=== PATIENT | female | born 1960 | race Caucasian/White ===

== ENCOUNTER 2017-03-30 07:48 | Outpatient (CLI) | payer OTHER ==
[2017-03-30 08:52] LABS: HEMOGLOBIN A1C 0.54 g/dL
[2017-03-30 09:50] LABS: THYROID STIMULATING HORMONE 1.9 uIU/mL (0.34-5.60)
[2017-03-31 08:26] LABS: PROGESTERONE <0.5 ng/mL
[2017-04-01 21:21] LABS: DHEA SULFATE 78 mcg/dL (8-188)
== END 2017-03-30 07:49 | disposition home or self-care (01) ==
LOC: LAB 07:48
PROVIDERS: ATTEND Internal Medicine
DX: Z00.00 Encounter for general adult medical examination without abnormal findings (principal); Z79.899 Other long term (current) drug therapy; H52.10 Myopia, unspecified eye; M54.5 Low back pain; R85.619 Unspecified abnormal cytological findings in specimens from anus; F41.9 Anxiety disorder, unspecified
CPT/HCPCS: 36415; 82627; 82670; 83036; 84144; 84439; 84443; 84481

== ENCOUNTER 2018-06-14 20:27 | Outpatient (CLI) | payer BC ==
--- NOTE | 2018-06-15 09:46 | Ultrasound Report ---
Reason: PELVIC PAIN Procedure Date: 06/14/2018 Accession Number: [id number] / [id number] Procedure: US - Pelvic w/Transvaginal CPT Code: FULL RESULT: EXAM: PELVIC ULTRASOUND EXAM DATE: 06/14/2018 11:00 PM. CLINICAL HISTORY: Pelvic pain. COMPARISON: None. TECHNIQUE: Realtime transabdominal pelvic scan performed to identify the uterus and adnexa and as an overview of other pelvic structures, followed by transvaginal scan to provide greater detail of the uterus and adnexa, with static image documentation. FINDINGS: Uterus: 4.5 x 3.8 x 2.6 cm, volume 23.2 cc. Anteverted position. Normal overall size and echotexture. Masses: 7 mm hypoechoic mass of the posterior myometrium. Endometrium: 1 mm. Normal. Cervix: Unremarkable. Right Ovary: 1.4 x 0.8 x 0.7 cm, volume 0.9 cc. Normal echotexture and blood flow. Left Ovary: 1.4 x 1.3 x 0.8 cm, volume 1.2 cc. Normal echotexture and blood flow. Free Fluid: None. Other: None. IMPRESSION: 7 mm hypoechoic oval mass of the posterior myometrium most likely incidental fibroid. Otherwise normal pelvic ultrasound. RADIA
== END 2018-06-14 20:28 | disposition home or self-care (01) ==
LOC: DI 20:27
PROVIDERS: ATTEND Internal Medicine
DX: R10.2 Pelvic and perineal pain (principal); N85.8 Other specified noninflammatory disorders of uterus
CPT/HCPCS: 76830; 76856

== ENCOUNTER 2020-04-29 08:02 | Outpatient (CLI) | payer BC ==
[2020-04-29 08:33] LABS: EOSINOPHILS # (AUTO) 0.2 10^3/uL (0.0-0.7); EOSINOPHILS % (AUTO) 3.8 %; HGB - HEMOGLOBIN 14.2 g/dL (12.0-16.0); LYMPHOCYTES # (AUTO) 1.5 10^3/uL (1.5-3.5); LYMPHOCYTES % (AUTO) 36.5 %; MEAN CORPUSCULAR HEMOGLOBIN 32.8 pg (27.0-31.0); MEAN CORPUSCULAR HGB CONC 33.9 g/dL (32.0-36.0); MEAN CORPUSCULAR VOLUME 96.8 fL (81.0-99.0); MEAN PLATELET VOLUME 9.8 fL (7.9-10.8); MONOCYTES # (AUTO) 0.3 10^3/uL (0.0-1.0); MONOCYTES % (AUTO) 7.2 %; NEUTROPHILS # (AUTO) 2.1 10^3/uL (1.5-6.6); NEUTROPHILS % (AUTO) 51.5 %; PLT - PLATELET COUNT 292 10^3/uL (130-450); RED BLOOD COUNT 4.33 10^6/uL (4.20-5.40); RED CELL DISTRIBUTION WIDTH 11.9 % (12.0-15.0); WHITE BLOOD COUNT 4.2 x10^3/uL (4.8-10.8)
[2020-04-29 08:55] LABS: ALBUMIN 4.5 g/dL (3.2-5.5); ALBUMIN/GLOBULIN RATIO 1.7 (1.0-2.2); ALKALINE PHOSPHATASE 55 IU/L (42-121); ALT ALANINE AMINOTRANSFERASE 18 IU/L (10-60); AST ASPARTATE AMINOTRANSFERASE 21 IU/L (10-42); BILIRUBIN,TOTAL 0.8 mg/dL (0.2-1.0); BUN - BLOOD UREA NITROGEN 13 mg/dL (6-20); CALCIUM 9.4 mg/dL (8.5-10.3); CARBON DIOXIDE - CO2 28 mmol/L (21-32); CHLORIDE 99 mmol/L (101-111); CHOL/HDL RATIO 3.4 (<4.4); CHOLESTEROL 234 mg/dL; CREATININE 0.5 mg/dL (0.4-1.0); GLUCOSE 93 mg/dL (70-100); HDL CHOLESTEROL 68 mg/dL; LDL CHOLESTEROL,CALCULATED 158 mg/dL; LDL/HDL RATIO 2.3 (<4.4); SODIUM 137 mmol/L (135-145); TOTAL PROTEIN 7.1 g/dL (6.7-8.2); VLDL CHOLESTEROL 8 mg/dL
[2020-04-29 09:07] LABS: THYROID STIMULATING HORMONE 2.79 uIU/mL (0.34-5.60)
[2020-04-29 09:09] LABS: FREE T3 3.13 pg/mL (2.5-3.9)
[2020-04-29 09:10] LABS: FREE T4 (FREE THYROXINE) 0.97 ng/dL (0.58-1.64)
[2020-04-29 09:24] LABS: CRP - C-REACTIVE PROTEIN < 1.0 mg/dL (0-1.0)
[2020-04-29 14:32] LABS: HEMOGLOBIN A1c% 5.4 % (4.27-6.07)
== END 2020-04-29 08:03 | disposition home or self-care (01) ==
LOC: LAB 08:02
PROVIDERS: ATTEND Internal Medicine
DX: Z00.00 Encounter for general adult medical examination without abnormal findings (principal); M76.892 Other specified enthesopathies of left lower limb, excluding foot; E03.8 Other specified hypothyroidism; Z13.220 Encounter for screening for lipoid disorders
CPT/HCPCS: 36415; 80053; 80061; 83036; 83721; 84439; 84443; 84481; 85025; 85651; 86140; 86200

== ENCOUNTER 2020-10-28 08:55 | Outpatient (CLI) | payer BC ==
--- NOTE | 2020-10-29 13:24 | Mammography Report ---
BILATERAL DIGITAL SCREENING MAMMOGRAM 3D/2D WITH EXAGGERATED CC: 10/28/2020 CLINICAL: Family history of breast cancer. Comparison is made to exam dated: 03/24/2016 mammogram - [facility]. The tissue o f both breasts is heterogeneously dense. This may lower the sensitivity of mammography. No significant masses, calcifications, or other findings are seen in either breast. There has been no significant interval change. IMPRESSION: NEGATIVE There is no mammographic evidence of malignancy. A 1 year screening mammogram is recommended. This exam was interpreted at Station ID: [id number]. NOTE: For mammograms, a report in lay terms will be sent to the patient. Approximately 15% of breast malignancies will not be visualized mammographically. In the management of a palpable breast mass, a negative mammogram must not discourage biopsy of a clinically suspicious lesion. Electronically Signed By: Zion oWody M.D. [email or web address]:10/28/2020 09:29:45 ACR BI-RADS Category 1: Negative 3341F PARENCHYMAL PATTERN: (D) - The breast(s) demonstrate(s) heterogeneously dense fibroglandular nel schwartz. BI-RADS CATEGORY: (1) - 1 RECOMMENDATION: (ANNUAL) - Recommend routine annual screening mammography. [id number] 1 year screening LATERALITY: (B)
== END 2020-10-28 08:56 | disposition home or self-care (01) ==
LOC: DI.S 08:55
DX: Z12.31 Encounter for screening mammogram for malignant neoplasm of breast (principal); Z80.3 Family history of malignant neoplasm of breast

== ENCOUNTER 2021-02-02 12:32 | Outpatient (CLI) | payer BC | END 2021-02-02 12:33 | disposition home or self-care (01) | LOC: LAB.S 12:32 | PROVIDERS: ATTEND Internal Medicine | DX: Z01.812 Encounter for preprocedural laboratory examination (principal) | CPT/HCPCS: 87640 ==

== ENCOUNTER 2021-02-19 20:18 | Emergency (ER) | payer BC ==
[2021-02-19 20:31] VITALS: BP 125/45
--- NOTE | 2021-02-19 21:06 | ED Physician Documentation ---
History of Present Illness - Stated complaint Stated Complaint: LT WRIST/ARM PX; FELL OFF LADDER - Chief complaint Chief Complaint: Trauma Ext - History obtained from History obtained from: Patient - Additonal information Additional information: 61yF p/w wrist pain s/p FOOSH after missing a step at the bottom of a ladder. L wrist pain sudden onset, mild, constant, aching. She was preparing for bed and noticed it was a little sharper when she tapped on it so came for eval. denies numbness, swelling Review of Systems Musculoskeletal: reports: Extremity pain, Joint pain PD PAST MEDICAL HISTORY - Past Medical History Past Medical History: No Cardiovascular: None Respiratory: None Neuro: None Endocrine/Autoimmune: None GI: None : None HEENT: None Psych: None Musculoskeletal: Osteoarthritis, Chronic back pain Derm: None - Past Surgical History Past Surgical History: No - Present Medications Home Medications: Ambulatory Orders Medication Instructions Recorded Confirmed Ibuprofen [Motrin] 400 mg PO BID 02/19/21 02/19/21 - Allergies Allergies/Adverse Reactions: Allergies Allergy/AdvReac Type Severity Reaction Status Date / Time No Known Drug Allergies Allergy Verified 02/19/21 20:28 - Social History Does the pt smoke?: No Smoking Status: Never smoker Does the pt drink ETOH?: Yes Does the pt have substance abuse?: No - Immunizations Immunizations are current?: No Immunizations: TDAP >10years/unknown - POLST Patient has POLST: No PD ED PE NORMAL - Vitals Vital signs reviewed: Yes - General General: Alert and oriented X 3, No acute distress, Well developed/nourished - Derm Derm: Normal color, Warm and dry, Other (no swelling, ecchymosis) - Extremities Extremities: No deformity, Other (discomfort with full flexion and extension of L wrist. FROM. 2+ radial pulse, cap refill, strength, sensation. discomfort to palpation along ulnar wrist. no anatomic snuffbox ttp. no bony ttp of hand) Results - Vitals Vitals: Vital Signs - 24 hr 02/19/21 20:26 Temperature 36.4 C L Heart Rate 56 L Respiratory 16 Rate Blood Pressure 125/45 L O2 Saturation 98 Oxygen O2 Source Room air PD MEDICAL DECISION MAKING - ED course ED course: 61yF p/w likely wrist sprain. symptomatic management discussed. return precautions given. plan f/u with pmd. splint placed. Departure - Departure Disposition: 01 Home, Self Care Clinical Impression: Wrist pain Condition: Good Instructions: Wrist Sprain, ED KAITLYNN Comments: You were seen in the emergency department for wrist sprain. Your x-rays did not show a break in the bone. Occasionally xrays can miss subtle breaks so if you have persistent pain you should follow up with your primary doctor for repeat xray in 1 week. Please return to the emergency department you have any new or symptoms or concerns. You can start to do range of motion exercises with rest after 24 hours. Apply the splint for comfort. Take ibuprofen 400 to 600 mg every 6 hours with a snack for pain.
--- NOTE | 2021-02-19 21:14 | XRAY Report ---
PROCEDURE: Wrist 4 View LT INDICATIONS: Trauma TECHNIQUE: 4 views of the wrist were acquired. COMPARISON: None FINDINGS: Bones: No fractures or dislocations. Mild osteoarthritic changes at the first carpometacarpal joint. No suspicious bony lesions. Scaphoid view: No fracture Soft tissues: No suspicious soft tissue calcifications. IMPRESSION: Intact left wrist. Reviewed by: Magalis Cho MD on 02/19/2021 9:13 PM PDT Approved by: Magalis Cho MD on 02/19/2021 9:13 PM PDT Station ID: [id number]
== END 2021-02-19 21:15 | disposition home or self-care (01) ==
LOC: ED 20:18
DX: S63.502A Unspecified sprain of left wrist, initial encounter (principal); W11.XXXA Fall on and from ladder, initial encounter
CPT/HCPCS: 99282; 99283

== ENCOUNTER 2023-08-17 08:41 | Outpatient (CLI) | payer BC, OTHER ==
--- NOTE | 2023-08-18 09:42 | Mammography Report ---
BILATERAL DIGITAL SCREENING MAMMOGRAM 3D/2D: 08/17/2023 CLINICAL: Routine screening. Family history of breast cancer. Comparison is made to exams dated: 10/28/2020 mammogram and 03/24/2016 mammogram - [facility]. Both breasts are heterogeneously dense, which may obscure small masses (category c / 51-75% glandular tissue). No significant masses, calcifications, or other findings are seen in either breast. There has been no significant interval change. IMPRESSION: NEGATIVE There is no mammographic evidence of malignancy. A 1 year screening mammogram is recommended. Based on the Tyrer Cuzick model (a risk assessment model) the patient's lifetime risk is 18.5% and he r 10 year risk is 8.3%. According to the ACR, ACS, and NCCN guidelines, an annual breast MRI exam william ng with mammogram is recommended if the patient's lifetime risk is 20% or greater. This exam was interpreted at Station ID: [id number]. NOTE: For mammograms, a report in lay terms will be sent to the patient. Approximately 15% of breast malignancies will not be visualized mammographically. In the management of a palpable breast mass, a negative mammogram must not discourage biopsy of a clinically suspicious lesion. Electronically Signed By: Kanchan [email or web address]:08/17/2023 15:40:30 letter sent: No_Letter ACR BI-RADS Category 1: Negative 3341F PARENCHYMAL PATTERN: (D) - The breast(s) demonstrate(s) heterogeneously dense fibroglandular nel schwartz. BI-RADS CATEGORY: (1) - 1 RECOMMENDATION: (ANNUAL) - Recommend routine annual screening mammography. [id number] 1 year screening LATERALITY: (B)
== END 2023-08-17 08:42 | disposition home or self-care (01) ==
LOC: DI.S 08:41
DX: Z12.31 Encounter for screening mammogram for malignant neoplasm of breast (principal); R92.333 Mammographic heterogeneous density, bilateral breasts; Z80.3 Family history of malignant neoplasm of breast